=== PATIENT | male | born 1935 | race Caucasian/White ===

== ENCOUNTER 2022-07-20 09:38 | Emergency (ER) | payer MEDICARE ==
[~2022-07-20] VITALS: Ht 167.6 cm; Wt 61.2 kg
--- NOTE | 2022-07-20 09:55 | NUR ---
C/O URINARY RETENTION SINCE LAST NIGHT. HX OF RETENTION AND BLADDER CA.PT STATES "DISCOMFORT IN BLADDER AREA WITH DYSURIA, AND URGENCY
[2022-07-20] MEDS ORDERED: LIDOCAINE 2% JEL UROJET 10 ML MM ONE ×2 (10:12→10:30)
--- NOTE | 2022-07-20 10:15 | NUR ---
DIEHL CATHETER INSERTED AND SECURED , DRAINED URINE AND CHANGED TO LEG BAG.
--- NOTE | 2022-07-20 10:38 | NUR ---
Patient discharged to home in stable condition. Written and verbal after care instructions given. Patient verbalizes understanding of instruction.
[2022-07-20 10:40] VITALS: BP 131/86
[2022-07-20 11:22] LABS: BILIRUBIN,URINE NEGATIVE (NEGATIVE); COLOR,URINE AMBER (YELLOW); LEUKOCYTE ESTERASE ,URINE TRACE (NEGATIVE); NITRITE, URINE POSITIVE (NEGATIVE); PH,URINE 5.5 (5.0-8.0); PROTEIN,URINE 2+ mg/dl (NEGATIVE); UGLUCOSE NEGATIVE (NEGATIVE)
[2022-07-20 12:28] LABS: RBC,URINE TOO NUMEROUS TO COUN /HPF (0-2)
[2022-07-20 12:29] LABS: BACTERIA,URINE Few /HPF (None Seen); SQUAMOUS EPITHELIAL CELL,UR Few /HPF (None Seen)
== END 2022-07-20 10:40 | disposition home or self-care (01) ==
LOC: ER 09:54
DX: R33.9 Retention of urine, unspecified (principal); G20 Parkinson's disease; Z85.51 Personal history of malignant neoplasm of bladder
CPT/HCPCS: 99284; 51702; 87086; 81001; J3490